=== PATIENT | female | born 2005 | race African-American/Black ===

== ENCOUNTER 2025-02-21 08:19 | Outpatient (AMB) | payer OTHER, SELFPAY ==
--- NOTE | 2025-02-21 08:23 | MHC.OFFVISWM ---
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: Details: Start time: 8.15am, End time: 9.05am ?I spent 45 minutes speaking with the patient on the phone plus an additional 5 minutes reviewing and updating records for a total of 50 minutes HPI Comments Details: 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 Father No problems noted. Social History (Updated 01/10/25 @ 15:53 by Freda Stubbs CMA) Alcohol intake: never Patient Tobacco Use Status: Never used Tobacco Physical Exam Vital Signs: BMI result Body Mass Index 42.1 Telehealth Telehealth Telehealth Platform: Telephone Location of provider rendering services: practice address Location of patient: address on file Patient Identification confirmed using: Name, : Yes Telehealth method: voice only Patient verbally consented to treatment: Yes Patient verbally consented to billing insurance company: Yes Patient informed of any privacy concerns related to visit: Yes Minutes spent on Phone/Video with Pt.: 50 Assessment & Plan Assessment & Plan (1) Morbid obesity: Code(s): E66.01 - Morbid (severe) obesity due to excess calories Category: Medical Plan: 1. As we discussed, based on your present BMI you are approximately 115lbs overweight. In my opinion, for any weight loss strategy to be successful should have a high probability to help you lose at least 100lbs out of 115lbs of the extra weight you carry. We discussed in detail the available therapeutic options: 1) our lifestyle intervention program that has an average weight loss of 10% in 3 months.?Some patients continue it for longer and have lost over 50lbs but this is not common. Our lifestyle program can be provided by me. I will provide you with a link to use the ramesh if you choose to do so. We use protein shakes and protein bars to replace some of the meals of the day and cover your appetite better. We will decide together the exact combination. 2) Weight loss medications: these can be used in conjunction with our lifestyle program or you may choose to use them without following a lifestyle program from my program but your own. As we discussed, your insurance may allow a pill called Phentermine. This can cause dry mouth, difficulty sleeping, heart palpitations and elevated blood pressure, Also you can self pay for the first 3 months and the cost is $249 for the first month and $499 for any other month thereafter. These payments go to the drug company directly and not to us. As we discussed, this is not a fci solution, as most patients put all the weight back once they are off the medication. 3) We also discussed about the lap sleeve gastrectomy. In my opinion this is the best option to solve your problem based on your situation and should be used in conjunction with the two previous options. A good strategy to make this decision to proceed with surgery, as soon as you achieve a specific goal with the lifestyle intervention and medication options: to lose least 10% of your initial weight in 3 months. ?I emphasized the importance of close follow-up, adherence to instructions and good communication. The surgery does not replace the need to change your lifestlyle which is the cause of the obesity problem. The surgery provides the motivation to try again to change your lifestyle, it reduces the appetite and make the transition to a better lifestyle easier and doubles the amount of weight you would lose compared to doing the lifestyle change without the surgery. You will need to be on a liquid diet with protein shakes for 2 weeks before surgery to maximize weight loss and boost your nutritional status to recover better from surgery and also for the first two weeks after surgery to let the stomach heal before we introduce other foods. After the first 2 weeks we will introduce protein bars and soft foods like scrambled eggs, cottage cheese and yogurt and after the 6th week will introduce meat, fish and cooked vegetables in small amounts. Over time you should be able to eat everything in small amounts. Side effects like nausea, vomiting, heartburn or abdominal pain are not common in the practice unless you are not following in the practice. This operation requires lifetime commitment to following in our practice and communication with me. You will much less weight and experience side effects if you don?t communicate or not following in the practice. Complications are rare and in our practice is about 1/10 of the national average.
--- OUTSIDE RECORDS SUMMARY | 2025-02-21 08:27 | XMS_ITS | Clinical Summary ---
Author Organization [facility] [address] [facility] Building Address [address] [place], [place] Phone Care Team Providers Care Mail Deliverer Name Role Phone Mecca Perez DO Primary Care Provider [phone] Allergies No known active allergies Medications No known medications Encounters Date Type Department Care Team Description 01/20/2025 3:15 PM EDT Office Visit [facility] [address] [place], [place] [phone] Natalio Greenberg PA Need for hepatitis B vaccination 12/13/2024 4:15 PM EDT Clinical Support [facility] [address] [facility] [place] [place] [phone] Immunization due (Primary Dx) 12/10/2024 Telephone [facility] [address] [facility] [place] [place] [phone] Mecca Perez DO 12/04/2024 Telephone [facility] [address] [place], [place] [phone] Mecca Perez DO 11/21/2024 Telephone [facility] [address] [facility] [place] [place] [phone] Mecca Perez DO 11/21/2024 Telephone [facility] [address] [facility] [place] [place] [phone] Mecca Perez DO from Last 3 Months Immunizations Immunization Administration Dates Next Due Hepatitis B (Eqyklsi-E-Irdpb , Recombivax HB-Adult) 19yo and older 01/20/2025,12/13/2024 Surgical History Surgery Date Site/Laterality Comments TONSILLECTOMY Medical History Medical History Date Comments No pertinent past medical history Family History Medical History Relation Name Comments Scoliosis Father Diabetes Maternal Grandmother Depression Mother bipolar Relation Name Status Comments Father Alive Maternal Grandmother Alive Mother Social History Tobacco Use Types Packs/Day Years Used Date Smoking Tobacco: Never Smokeless Tobacco: Never Tobacco Cessation:Counseling Given: Not Answered Alcohol Use Standard Drinks/Week Comments Never 0 (1 standard drink = 0.6 oz pur e alcohol) Housing Instability Answer Date Recorde d Are you worried that in the next 2 months you may not have stable housing? No 10/29/2024 Food Access & Nutrition Answer Date Rec orded Do you have access to a vari ety of food including fruits and vegetables? Yes 10/29/2024 Access to Healthcare Answer Date Record ed Within the last 3 months, bi mederos many times did you visit the emergency department for your medical care? 0 10/29/2024 Health Literacy Answer Date Recorded How often do you need to hav e someone help you when you read instructions, pamphlets, or other written material from your doctor or pharmacy? Never 10/29/2024 Caregiver: How often do you need to have someone help you when you read instructions, pamphlets, or other written material from your doctor or pharmacy? Not on file 10/29/2024 Financial Risk Answer Date Recorded How hard is it for you to pa y for the very basics like food, housing, medical care, and air conditioning / heating? Not very hard 10/29/2024 Transportation Answer Date Recorded Has the lack of transportati on kept you from meetings, work, or from getting things needed for daily living? No Has the lack of transportati on kept you from medical appointments or from getting medications? No 10/29/2024 Social Isolation Answer Date Recorded How often do you feel lonely or isolated from th ose around you? Rarely 10/29/2024 Food Risk Answer Date Recorded Within the past 12 months we worried whether our food would run out before we got money to buy more. Never true 10/29/2024 Within the past 12 months th e food we bought just didn't last and we didn't have money to get more. Never true 10/29/2024 Dependent Care Answer Date Recorded Do you need help finding or paying for care for your loved ones. For example, child day care teacher or elderly care for an older adult? No 10/29/2024 Education Answer Date Recorded Do you think completing more education or training, like finishing a GED, going to college, or learning a trade, would be helpful for you? Yes 10/29/2024 Employment and Income Answer Date Recor ded During the last four weeks, have you been actively looking for work? No 10/29/2024 Living Situation Answer Date Recorded What is your living situation? 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 Not on fi le Not on file Obstetrics History Last Filed Vital Signs Vital Sign Reading Time Taken Comments Blood Pressure 104/78 11/05/2024 1:53 PM EDT Pulse 66 11/05/2024 1:53 PM EDT Temperature - - Respiratory Rate - - Oxygen Saturation - - Inhaled Oxygen Concentration - - Weight 130 kg (286 lb 9.6 oz) 11/05/2024 1:53 PM EDT Height 179.1 cm (5' 10.5 ) 11/05/2024 1:53 PM ED T Body Mass Index 40.54 11/05/2024 1:53 PM EDT Plan of Treatment Health Maintenance Due Date Last Done Comments Varicella Vaccines (1 of 2 - 13+ 2-dose series) 2017 HPV Vaccines (1 - 3-dose series) 2019 Meningococcal B Vaccine (1 o f 2 - Standard) 2020 DTaP,Tdap,and Td Vaccines (1 - Tdap) 2023 COVID-19 Vaccine (3 - 2024-2 6 season) 2024 10/31/2020, 10/10/2020 Influenza Vaccine (#1) 2024 3, 02/20/2022 Hepatitis B Vaccines (3 of 3 - 19+ 3-dose series) 06/12/2025 01/20/2025, 12/13/2024 Social Influencers of Health Screening 10/29/2025 10/29/2024 Annual Well Child Visit (3-2 1 years old) 11/05/2025 11/05/2024 Cholesterol Screening (Lipid Panel) 11/07/2029 11/07/2024 RSV Immunization Adult Patients (1 - 1-dose 75+ series) 2079 Depression Screening Completed 10/29/2024 Gonorrhea/Chlamydia Screening Discontinued HIB Vaccines Aged Out No longer eligi ble based on patient's age to complete this topic HIV Screening Discontinued Hepatitis A Vaccines Aged Out No long er eligible based on patient's age to complete this topic Hepatitis C Screening Discontinued IPV Vaccines Aged Out No longer eligi ble based on patient's age to complete this topic MMR Vaccines Aged Out No longer eligi ble based on patient's age to complete this topic Meningococcal ACWY Vaccine Aged Out N o longer eligible based on patient's age to complete this topic Pneumococcal Vaccine: Pediatrics (0 to 5 Years) and At-Risk Patients (6 to 49 Years) Aged Out No longer eligible based on patient's age to complete this topic RSV Immunization Patients Under 20 months Aged Out No longer eligible based on patient's age to complete this topic Procedures Procedure Name Priority Date/Time Associated Diagnosis Comments HEPATITIS B SURFACE ANTIBODY Routine 12/03/2024 3:18 PM EDT Screening for endocrine, nutritional, metabolic and immunity disorder Antibody response examination INTERFERON GAMMA INTERPRETATION Routine 12/03/2024 3:18 PM EDT Adult general medical examination INTERFERON GAMMA ANTIGEN 2 Routine 12/03/2024 3:18 PM EDT Adult general medical examination INTERFERON GAMMA ANTIGEN 1 Routine 12/03/2024 3:18 PM EDT Adult general medical examination INTERFERON GAMMA MITOGEN Routine 12/03/2024 3:18 PM EDT Adult general medical examination INTERFERON GAMMA NIL Routine 12/03/2024 3:18 PM EDT Adult general medical examination INTERFERON GAMMA FOR TB, QUALITATIVE Routine 12/03/2024 3:18 PM EDT Adult general medical examination HEPATITIS B CORE ANTIBODY, TOTAL Routine 12/03/2024 3:18 PM EDT Adult general medical examination LIPID PANEL WITH REFLEX TO DIRECT LDL Routine 11/07/2024 11:01 AM EDT Screening for cardiovascular condition from Last 3 Months or Most Recently Relevant to Health Maintenance Results * Interferon gamma interpretation (12/03/2024 3:18 PM EDT) [facility] Signature Quantiferon Plus Interpretation Negative Negative LAB CHEMISTRY METHOD 12/05/2024 1:49 PM EDT [facility] Blood Venous blood specimen / Unknown Venipuncture / Unknown 12/03/2024 3:18 PM EDT 12/03/2024 3:18 PM EDT April Ravi NP LAB BLOOD ORDERABLES Final Resul t Performing Organization Address [facility]/ZIP Co de Phone Number [facility] [address] [place] [address], * Interferon gamma antigen 2 (12/03/2024 3:18 PM EDT) Blood Venous blood specimen / Unknown Venipuncture / Unknown 12/03/2024 3:18 PM EDT 12/03/2024 3:18 PM EDT April Ravi NP LAB BLOOD ORDERABLES Final Resul t Performing Organization Address City/[facility]/ZIP Co de Phone Number [facility] [address] [place] [address], * Interferon gamma antigen 1 (12/03/2024 3:18 PM EDT) Blood Venous blood specimen / Unknown Venipuncture / Unknown 12/03/2024 3:18 PM EDT 12/03/2024 3:18 PM EDT April Ravi NP LAB BLOOD ORDERABLES Final Resul t Performing Organization Address [facility]/ZIP Co de Phone Number [facility] [address] [place] [address], [place] [phone] * Interferon gamma mitogen (12/03/2024 3:18 PM EDT) Blood Venous blood specimen / Unknown Venipuncture / Unknown 12/03/2024 3:18 PM EDT 12/03/2024 3:18 PM EDT April Ravi NP LAB BLOOD ORDERABLES Final Resul t Performing Organization Address [facility] Co de Phone Number [facility] [address] [place] [address], [place] [phone] * Interferon gamma NIL (12/03/2024 3:18 PM EDT) Blood Venous blood specimen / Unknown Venipuncture / Unknown 12/03/2024 3:18 PM EDT 12/03/2024 3:18 PM EDT April Ravi NP LAB BLOOD ORDERABLES Final Resul t Performing Organization Address [facility] de Phone Number [facility] [address] [place] [address], [place] [phone] * Hepatitis B core antibody, total (12/03/2024 3:18 PM EDT) Hep B Core Total Ab Negative Negative LAB CHEMISTRY METHOD 12/03/2024 7:35 PM EDT [facility] Blood Venous blood specimen / Unknown Venipuncture / Unknown 12/03/2024 3:18 PM EDT 12/03/2024 3:18 PM EDT April Ravi NP LAB BLOOD ORDERABLES Final Resul t Performing Organization Address City/[facility] Co de Phone Number [facility] [address] [place] [address], [place] [phone] * Hepatitis B surface antibody (12/03/2024 3:18 PM EDT) [facility] Hepatitis B Surface Ab Negative Negative LAB CHEMISTRY METHOD 12/06/2024 8:47 AM EDT [facility] Hepatitis B Surface Ab Quantitative <3.1 mIU/mL LAB CHEMISTRY METHOD 12/06/2024 8:47 AM EDT [facility] Blood Venous blood specimen / Unknown Venipuncture / Unknown 12/03/2024 3:18 PM EDT 12/03/2024 3:18 PM EDT Narrative [facility] - 12/06/2024 8:47 AM EDT >=10 mIU/mL is considered to be consistent with immunity. us April Raiv NP LAB BLOOD ORDERABLES Final Resul t [facility] [address] [place] [address], [place] [phone] * Lipid panel with reflex to direct LDL (11/07/2024 11:01 AM EDT) [facility] Cholesterol 154 0 - 200 mg/dL LAB CHEMISTRY METHOD 11/07/2024 2:57 PM EDT [facility] Triglycerides 59 0 - 150 mg/dL LAB CHEMISTRY METHOD 11/07/2024 2:57 PM EDT [facility] HDL 50 >=40 mg/dL LAB CHEMISTRY METHOD 11/07/2024 2:57 PM EDT [facility] LDL Calculated 92 0 - 100 mg/dL LAB CHEMISTRY METHOD 11/07/2024 2:57 PM EDT [facility] VLDL Cholesterol Isaias 11.8 mg/dL LAB CHEMISTRY METHOD 11/07/2024 2:57 PM EDT [facility] Non HDL Chol. (LDL+VLDL) 104 <145 mg/dL LAB CHEMISTRY METHOD 11/07/2024 2:57 PM EDT [facility] Chol/HDL Ratio 3.1 0.0 - 4.4 LAB CHEMISTRY METHOD 11/07/2024 2:57 PM EDT [facility] Blood Venous blood specimen / Unknown Venipuncture / Unknown 11/07/2024 11:01 AM EDT 11/07/2024 11:01 AM EDT us April Ravi [employer] TECHNICIAN LAB BLOOD ORDERABLES Final Resul t [facility] [address] [place] [address], from Last 3 Months or Most Recently Relevant to Health Maintenance Insurance [facility] [employer] Care Teams Mail Deliverer Relationship Specialty Start Date End Date Mecca Perez DO [address] [place] [address] PCP - General Internal Medicine 09/03/24
--- OUTSIDE RECORDS SUMMARY | 2025-02-21 08:27 | XMS_ITS | Clinical Summary ---
Author Organization [facility] Address [address] [place] [address] Care Team Providers Care Sex Worker Or Escort Name Role Phone Christelle Patel Primary Care Provider [phone] Allergies No known active allergies Medications No known medications Active Problems No known active problems Encounters Date Type Department Care Team Description 02/10/2025 1:30 PM EST Follow-Up [facility] Medicine [address] [place] [id number] Keron Shepard MD Concussion without loss of consciousness, subsequent encounter (Primary Dx) 01/16/2025 3:30 PM EDT Follow-Up [address] [id number] Keron Shepard MD Concussion without loss of consciousness, subsequent encounter (Primary Dx) 01/03/2025 3:45 PM EDT Office Visit [facility] [address] [place] [id number] Speeder Operator: Keron Scanlon MD Concussion without loss of consciousness, initial encounter (Primary Dx) from Last 3 Months Social History Tobacco Use Types Packs/Day Years Used Date Smoking Tobacco: Never Smokeless Tobacco: Never Tobacco Cessation:Counseling Given: Not Answered Alcohol Use Standard Drinks/Week Comments Never 0 (1 standard drink = 0.6 oz pur e alcohol) Comments No Sex and Gender Information Value Date Recorded Sex Assigned at Not on file Legal Sex Female 9:29 PM EDT Gender Identity Not on file Sexual Orientation Not on file Last Filed Vital Signs Vital Sign Reading Time Taken Comments Blood Pressure 131/82 07/27/2023 2:25 AM EDT Pulse 76 07/27/2023 2:25 AM EDT Temperature 36.8 C (98.2 F) 07/26/2023 9:41 PM EDT Respiratory Rate 18 07/27/2023 2:25 AM EDT Oxygen Saturation 99% 07/27/2023 2:25 AM EDT Inhaled Oxygen Concentration - - Weight 113.4 kg (250 lb) 07/26/2023 9:41 PM EDT Height 177.8 cm (5' 10 ) 07/26/2023 9:41 PM EDT Body Mass Index 35.87 07/26/2023 9:41 PM EDT Plan of Treatment Health Maintenance Due Date Last Done Comments HIV Screening 2004 Hepatitis C Screening 2004 1 Week [facility] 2004 1 Month [facility] 2004 2 Month [facility] 2004 4 Month [facility] 2004 6 Month [facility] 2004 9 Month [facility] 2004 MMR Vaccines (1 of 1 - Standard series) 2005 12 Month [facility] 04/11/2005 15 Month [facility] 06/28/2005 18 Month [facility] 09/26/2005 24 Month [facility] 03/25/2006 30 Month [facility] 07/29/2006 3 to 21 Year [facility] 2007 Well Child Check 2007 DTaP,Tdap,and Td Vaccines (1 - Tdap) 2011 Varicella Vaccines (1 of 2 - 13+ 2-dose series) 2017 HPV Vaccines (1 - 3-dose series) 2019 Chlamydia Screening 2020 Depression Screening and Follow-Up 2024 Social Drivers of Health Annual Screening 2024 COVID-19 Vaccine (3 - 2024-2 6 season) 2024 10/31/2020, 10/10/2020 Influenza Vaccine (#1) 2024 3, 02/20/2022 Hepatitis B Vaccines (3 of 3 - 19+ 3-dose series) 06/12/2025 01/20/2025, 12/13/2024 Meningococcal Vaccine Aged Out No rosalia edgard eligible based on patient's age to complete this topic Pneumococcal Vaccine: Pediatric (0-5 Years) and At-Risk Patients (6-50 Years) Aged Out No longer eligible based on patient's age to complete this topic Insurance [employer] Care Teams Sex Worker Or Escort Relationship Specialty Start Date End Date Christelle Patel [address] [place] [id number] PCP - General Pediatrics 07/27/23
[2025-02-21 08:30] VITALS: BMI 42.1
== END 2025-02-21 11:26 | disposition home or self-care (01) ==
LOC: HO.HBS 08:19
PROVIDERS: PCP Nurse Practitioner; Visit Provider Surgery
DX: E66.01 Morbid (severe) obesity due to excess calories (principal)
CPT/HCPCS: 99204

== ENCOUNTER → 2025-02-24 12:27 | Outpatient (BNV) | payer OTHER, SELFPAY ==
--- NOTE | 2025-02-24 12:27 | A.OFFWM_ITS ---
Intake Intake Visit Reasons: Amb Documentation Allergies No Known Allergies Allergy (Verified 02/21/25 08:23) [facility] Medical History (Updated 02/21/25 @ 08:25 by Félix Green MD) Morbid obesity Surgical History (Updated 01/10/25 @ 15:52 by Freda Stubbs CMA) No history of previous surgery Family History (Updated 01/10/25 @ 15:53 by Freda Stubbs CMA) Mother No problems noted. Father No problems noted. Social History (Updated 01/10/25 @ 15:53 by Freda Stubbs CMA) Alcohol intake: never Patient Tobacco Use Status: Never used Tobacco Behavioral Health Assessment Weight Management Therapy Therapy Notes Details PT is a 19 years old female, who presents for a visit to complete BH assessment as part of surgical weight loss program. Pt reports she was initially referred by her PCP Presenting Concerns Referral Source WMP-Provider. Reason for referral Completion of behavioral health assessment as part of process for weight-loss surgery. Precipitating Event Obesity. Living Situation Current Living Situation Relative's/Guardian's Rylee (in [place] when school is off.) and Other (College dorm during school year.) At risk of losing current housing? No Satisfied with current living situation? Yes Comments At school she shares a [address] with a common kitchen/bath. At home there is her father. Food/Weight/Diet Expectations of change PT started the program at 285Lbs, and is hoping to get surgery during the upcoming holiday break. She was given a meal plan which consisted a combination of shakes, bars, and 1 meal and so far she is doing great. She wants to be at her healthy weight, improve her life quality. History/Relationship with food PT reports if I'm hungry I eat with my eyes , has been used to feel full every time she east, and at times she eats more than she needs. PT denies any stress/emotional eating. she eats her 3 meals a day, and at times would eat even if not hungry because how busy is her day so was better to eat rather than get hungry later. Example of meals before starting the program: Breakfast: eggs, bagel, sausage. Lunch: salad and meat. Dinner: pasta. Eats at the dining shen. Snacks: 3 at day, such as Doritos, sunflower seeds, ice cream, and cookies. Drinks/Liquids: coffee: none. Soda: none. Juice: none. energy drinks: none. Water: 40oz at day. History/Relationship with weight PT reports she has always been overweight. In HS she was around 290Lbs. In the last 5 years, the patient's Lowest weight was 245Lbs and highest 285Lbs. 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 Binge Eating Do you frequently eat large amounts of food in short periods of time, not feeling physically hungry? No Do you feel out of control when you eat a large amount of food in a short period of time? No Do you eat large amounts of food rapidly and typically alone? No Night Eating Do you wake up at least once during the night to eat? Yes If you wake up in the night, do you find that it is necessary to eat something in order to fall back asleep? No Do you have little or no appetite in the morning and feel very hungry in the evening, often overeating between dinner and when you go to bed? No Social History Family history and relationship Never , no children, single. She has an older sister who is 23 years old. Her mother 2 years ago. She lives with her father. Her parents were for 27 years. Parental/Familial erector operator obligations None. Developmental history and status None, currently WNL. Social support Family, come friends. Community support Therapist. Mandaeism/Spirituality None Cultural/Ethnic information -Vincentian. Born and raised in [place]. Has family here and down there. Legal Involvement and History Current or historical involvement with the legal system? None reported. Education Highest grade completed 3 - year College Preferred learning style Written and Learn by doing Currently enrolled in educational program? Yes Interested in further educational program? 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 No Meaningful activities Track team, participates in some clubs in college, volleyball. Financial Situation Describe current financial situation Comfortable Financial assistance? Contributions from your family/friends (father.) and Other (College scholarships.) Service Service? No Mental Health and Addiction Treatment Current/Past substance abuse? No Comments Alcohol: None Cigarettes/Tobacco: None reported. Cannabis/Edibles: None. Current/Past addictive behavior concerns? No Psychiatric history PT reports she has been in therapy for about 2 months, Been doing telehealth at [facility]. she started counseling to get support with emotions and process the loss her mother. Currently meeting 1x week. PT not aware of any particular dx given. PT denies ever being in crisis or inpatient for mental health. There is no history and/or current concern about SI/Sa and self-harm or other harm. Medical and Physical Health Summary Additional Medical History not covered in history None Sexual History concerns None reported. Physical exam in the last year? Yes Pain Screening Current pain? No Pain in the last few months? Yes Comments Lower back pain. Medications Is the patient compliant with medications? Not applicable Does the patient have Lara Guardian in place? Not applicable Does the patient use complimentary health approaches? No Trauma/Abuse History History of trauma? No Questionnaires PHQ-9 Over the last 2 weeks, how often have you been bothered by any of the following problems? 1. Little interest or pleasure in doing things: not at all 2. Feeling down, depressed, or hopeless: several days 3. Trouble falling or staying asleep, or sleeping too much: not at all 4. Feeling tired or having little energy: not at all 5. Poor appetite or overeating: several days 6. Feeling bad about yourself - or that you are a failure or have let yourself or your family down: not at all 7. Trouble concentrating on things, such as reading the newspaper or watching television: not at all 8. Moving or speaking so slowly that other people could have noticed. Or the opposite - being so fidgety or restless that you have been moving around a lot more than usual: not at all 9. Thoughts that you would be better off or of hurting yourself in some way: not at all Total score: 2 Depression Screening Interpretation: Negative Depression Screening Done: Yes 52350 - PHQ-9 Billing: Yes Source: Developed by Drs. Jackson Lord, Caitie Sadler, Jaron Basurto and colleagues, with an educational kris from [employer]. Assessment & Plan Assessment & Plan (1) Adjustment disorder: Code(s): F43.20 - Adjustment disorder, unspecified (2) Pre-bariatric surgery psychological evaluation: Code(s): Z71.89 - Other specified counseling Plan Following a comprehensive behavioral health assessment?including review of the Binge Eating Scale, PHQ-9, mental status evaluation, and patient self- report?there are currently no behavioral health contraindications to proceeding with bariatric surgery. The patient demonstrates appropriate insight, motivation, and psychological readiness for the procedure. No active psychiatric symptoms or maladaptive eating behaviors were identified that would impede surgical outcomes at this time. The patient is cleared from a behavioral health perspective to proceed with bariatric surgery and documentation can be submitted for insurance approval as indicated. PT will return for a follow-up behavioral health visit 1?4 weeks postoperatively to monitor psychological adjustment, reinforce coping strategies, and screen for any emerging concerns such as mood changes, adjustment difficulties, or disordered eating patterns. Additional behavioral health support will be provided as needed based on postoperative assessment. Next ramesh: 1-4 weeks PO. Telehealth Telehealth Telehealth Platform: [employer] Location of provider rendering services: other (Home office. [place], [place]) Location of patient: [place] ([facility] Patient Identification confirmed using: Name, : Yes Telehealth method: video Patient verbally consented to treatment: Yes Patient verbally consented to billing insurance company: Yes Patient informed of any privacy concerns related to visit: Yes Minutes spent on Phone/Video with Pt.: 50 [place] [address] Tele Psy Diag Eval Patient Type New Diagnoses Adjustment disorder F43.20 Pre-bariatric surgery psychological evaluation Z71.89 Additional Codes PHQ-9 - 08106 - PHQ-9 Billing: Yes ([id number]) Time Spent (min) 50 Comment Start: 12:15pm - End time: 1:05pm
== END ==
PROVIDERS: PCP Nurse Practitioner; Visit Provider Counselor Mental Health
DX: F43.20 Adjustment disorder, unspecified (principal); Z71.89 Other specified counseling
CPT/HCPCS: 90791

== ENCOUNTER 2025-02-25 07:47 | Outpatient (REF) | payer OTHER, SELFPAY ==
[2025-02-25 08:03] LABS: MANUAL DIFF FLAG NO
[2025-02-25 08:19] LABS: Hematocrit 28.9 % (37.0-47.0); Hemoglobin 9.1 g/dl (12.0-16.0); Imm Gran Abs Auto 0.01 X10*3/uL (0.00-0.03); Imm Gran Pct Auto 0.2 % (0.0-0.4); Lymphocytes Absolute Auto 2.0 X10*3/uL (1.2-4.9); Mean Corpuscular HGB Conc 31.5 g/dl (31.0-35.0); Mean Corpuscular Hemoglobin 22.6 pg (27.0-33.0); Mean Corpuscular Volume 71.7 fL (80.0-98.0); NRBC Abs Auto 0.000 X10*3/uL (0.0-0.012); NRBC Pct Auto 0.0 /100WBC (0.0-0.2); Platelet Count 447 X10*3/uL (160-400); Red Blood Count 4.03 X10*6/uL (4.20-5.50); White Blood Count 5.1 X10*3/uL (4.8-10.8)
[2025-02-25 08:57] LABS: Cholesterol 153 mg/dL (<200); HDL Cholesterol 42 mg/dL (>40); Iron 17 mcg/dL (30-160); Percent Iron Saturation 4 % (15-50); Total Iron Binding Capacity 378 mcg/dL (228-428); Triglycerides 55 mg/dL (<150); Unsaturated Iron Binding 361 ug/dL
[2025-02-25 09:22] LABS: Folate 7.3 ng/mL (> or = 4.0); Vitamin B12 481 pg/mL (200-900)
== END 2025-02-25 07:48 | disposition home or self-care (01) ==
LOC: HO.LAB 07:47
PROVIDERS: Visit Provider Surgery
DX: E66.01 Morbid (severe) obesity due to excess calories (principal)
CPT/HCPCS: 36415; 80061; 82306; 82607; 82746; 83036; 83525; 83540; 84425; 84590; 84630; 85025

== ENCOUNTER 2025-03-10 06:41 | Outpatient (REF) | payer OTHER, SELFPAY ==
--- NOTE | ~2025-03-10 | XR_ITS ---
EXAMINATION: XR CHEST CLINICAL INFORMATION: E66.01 - Morbid (severe) obesity due to excess calories COMPARISON: None available. TECHNIQUE: 3 views FINDINGS: The cardiomediastinal silhouette is within normal limits. The lungs are well expanded. There is no focal consolidation, edema, or effusion. No pneumothorax. No acute osseous abnormality. XR/XR chest 2V IMPRESSION: No acute cardiopulmonary process Electronically signed by: Ronald Ngo MD 03/10/2025 07:34 AM [facility]
--- OUTSIDE RECORDS SUMMARY | 2025-03-10 06:43 | XMS_ITS | Clinical Summary ---
Author Organization [address] [facility] Building Address [address] [place] [address] Phone Care Team Providers Care Crew Clerk Name Role Phone Mecca Perez DO Primary Care Provider [phone] Allergies No known active allergies Medications No known medications Encounters Date Type Department Care Team Description 01/20/2025 3:15 PM EDT [facility] [address] [place] [address] Natalio Greenberg PA Need for hepatitis B vaccination 12/13/2024 4:15 PM EDT Clinical Support Internal Medicine - [address] [phone] Immunization due (Primary Dx) 12/10/2024 Telephone Internal Medicine - [address] [phone] Mecca Perez DO from Last 3 Months Immunizations Immunization Administration Dates Next Due Hepatitis B (Oprzxnl-I-Kxbyq , Recombivax HB-Adult) 19yo and older 01/20/2025,12/13/2024 [...] Record ed Within the last 3 months, ho w many times did you visit the emergency [...] for your loved ones. For example, child welfare social worker or elderly care for an older adult? 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 [...] 2024 10/31/2020, 10/10/2020 Influenza Vaccine (#1) 2024 , 02/20/2022 Hepatitis B Vaccines (3 of 3 [...] Procedure Name Priority Date/Time Associated Diagnosis Comments LIPID PANEL WITH REFLEX TO DIRECT LDL Routine 11/07/2024 11:01 AM EDT Screening for cardiovascular condition from Last 3 Months or Most Recently Relevant to Health Maintenance Results * Lipid panel with reflex to direct LDL (11/07/2024 11:01 AM EDT) Cholesterol 154 0 - 200 mg/dL LAB CHEMISTRY METHOD 11/07/2024 2:57 PM [facility] Triglycerides 59 0 - 150 mg/dL LAB CHEMISTRY METHOD 11/07/2024 2:57 PM [facility] HDL 50 >=40 mg/dL LAB CHEMISTRY METHOD 11/07/2024 2:57 PM [facility] LDL Calculated 92 0 - 100 mg/dL LAB CHEMISTRY METHOD 11/07/2024 2:57 PM [facility] VLDL Cholesterol Isaias 11.8 mg/dL LAB CHEMISTRY METHOD 11/07/2024 2:57 PM [facility] Non HDL Chol. (LDL+VLDL) 104 <145 mg/dL LAB CHEMISTRY METHOD 11/07/2024 2:57 PM [facility] Chol/HDL Ratio 3.1 0.0 - 4.4 LAB CHEMISTRY METHOD 11/07/2024 2:57 PM [facility] Blood Venous blood specimen / Unknown Venipuncture / Unknown 11/07/2024 11:01 AM EDT 11/07/2024 11:01 AM EDT us April Ravi MATE CHIEF LAB BLOOD ORDERABLES Final [facility]ul t [facility] [address] [place] [address], from Last 3 Months or Most Recently Relevant to Health Maintenance Insurance [facility] Care Teams Crew Clerk Relationship Specialty Start Date End Date Mecca Perez DO [address] [facility] [place] [address] PCP - General Internal Medicine 09/03/24
--- OUTSIDE RECORDS SUMMARY | 2025-03-10 06:43 | XMS_ITS | Clinical Summary ---
Author Organization [facility] Address [address] [place] [address] Care Team Providers Care Supervisor Acoustical Tile Carpenters Name Role Phone Christelle Patel Primary Care Provider [phone] Allergies No known active allergies Medications No known medications Active Problems No known active problems Encounters Date Type Department Care Team Description 02/10/2025 1:30 PM EST Follow-Up [facility] Sports Medicine [address] [place] [id number] Keron Shepard MD Concussion without loss of consciousness, subsequent encounter (Primary Dx) 01/16/2025 3:30 PM EDT Follow-Up [address] [address] Keron Shepard MD Concussion without loss of consciousness, subsequent encounter (Primary Dx) 01/03/2025 3:45 PM EDT Office Visit [facility] Sports Medicine [address] [place] [address] Compliance Quality Performance Analyst: Keron Scanlon MD Concussion without loss of [...] 2004 Hepatitis C Screening 2004 1 Week [facility] 2004 1 Month [facility] 2004 2 Month [facility] 2004 4 Month [facility] 2004 6 Month [facility] 2004 9 Month [facility] 2004 MMR Vaccines (1 of 1 - Standard series) 2005 12 Month [facility] 04/11/2005 15 Month [facility] 06/28/2005 18 Month [facility] 09/26/2005 24 Month [facility] 03/25/2006 30 Month [facility] 07/29/2006 3 to 21 Year [facility] 2007 Well Child Check 2007 DTaP,Tdap,and Td Vaccines (1 - Tdap) 2011 Varicella Vaccines (1 of 2 - 13+ 2-dose series) 2017 HPV Vaccines (1 - 3-dose series) 2019 Chlamydia Screening 2020 Meningococcal Vaccine (1 - 2-dose series) 2020 Depression Screening and Follow-Up 2024 Social Drivers of Health Annual Screening 2024 Influenza Vaccine (#1) 2024 , 02/20/2022 COVID-19 Vaccine (3 - 2024-2 6 season) 2024 10/31/2020, 10/10/2020 Hepatitis B Vaccines (3 of 3 - 19+ 3-dose series) 06/12/2025 01/20/2025, 12/13/2024 Pneumococcal Vaccine: Pediatric (0-5 Years) and At-Risk Patients (6-50 Years) Aged Out No longer eligible based on patient's age to complete this topic Insurance [employer] Care Teams Supervisor Acoustical Tile Carpenters Relationship Specialty Start Date End Date Christelle Patel [address] [place] [id number] PCP - General Pediatrics 07/27/23
--- NOTE | 2025-03-10 07:38 | ECG_ITS ---
Test Reason : e66.01 Blood Pressure : */* mmHG Vent. Rate : 59 BPM Atrial Rate : 59 BPM P-R Int : 162 ms QRS Dur : 98 ms QT Int : 412 ms P-R-T Axes : 53 40 19 degrees QTcB Int : 407 ms Sinus bradycardia with sinus arrhythmia Incomplete right bundle branch block Borderline ECG No previous ECGs available Referred By: Félix Green Electronically Signed By: SKIP ORTIZ
[2025-03-10 07:53] LABS: Alanine Aminotransferase 23 U/L (0-31); Albumin Level 4.2 g/dL (3.5-5.0); Alkaline Phosphatase 97 U/L (39-117); Anion Gap 12 (12-20); Aspartate Amino Transferase 31 U/L (5-31); Blood Urea Nitrogen 17 mg/dL (9-16); Calcium 8.9 mg/dL (8.4-10.2); Carbon Dioxide 24 mmol/L (22-29); Chloride 110 mmol/L (96-108); Estimated Glomerular Filt Rate > 60; Potassium 3.6 mmol/L (3.3-5.1); Sodium 142 mmol/L (135-145); Total Protein 7.1 g/dL (6.5-8.0)
[2025-03-10 08:18] LABS: Ferritin 7 ng/mL (10-122)
[2025-03-10 10:19] LABS: Free T4 (Free Thyroxine) 0.90 ng/dL (0.71-1.85)
== END 2025-03-10 06:42 | disposition home or self-care (01) ==
LOC: HO.XRAY 06:41
PROVIDERS: PCP Nurse Practitioner; Visit Provider Surgery
DX: E66.01 Morbid (severe) obesity due to excess calories (principal)
CPT/HCPCS: 36415; 71046; 80053; 82728; 84439; 84443; 86140; 93005

== ENCOUNTER → 2025-03-10 07:38 | Outpatient (BNV) | payer OTHER, SELFPAY | PROVIDERS: PCP Nurse Practitioner; Visit Provider Internal Medicine | DX: R00.1 Bradycardia, unspecified (principal); I45.10 Unspecified right bundle-branch block | CPT/HCPCS: 93010 ==

== ENCOUNTER 2025-03-25 07:23 | Day surgery (SDC) | payer OTHER, SELFPAY ==
--- OUTSIDE RECORDS SUMMARY | 2025-03-12 12:19 | XMS_ITS | Clinical Summary ---
Author Organization [facility] Address [address] [place] [phone] Phone Care Team Providers Care Heel Stainer Name Role Phone Mecca Perez DO Primary Care Provider [phone] Allergies No known active allergies Medications No known medications Encounters Date Type Department Care Team Description 01/20/2025 3:15 PM EDT Office Visit Internal Medicine - [address] [phone] Natalio Greenberg PA Need for hepatitis B vaccination 12/13/2024 4:15 PM EDT Clinical Support Internal Medicine - [address] [phone] Immunization due (Primary Dx) from Last 3 Months Immunizations Immunization Administration Dates Next Due Hepatitis B (Aaeermp-V-Gwjhb , Recombivax HB-Adult) 19yo and older 01/20/2025,12/13/2024 [...] care for your loved ones. For example, early childhood education specialist or elderly care for an older adult? 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 HDL 50 >=40 mg/dL LAB CHEMISTRY METHOD 11/07/2024 2:[address] [facility] LDL Calculated 92 0 - 100 mg/dL LAB CHEMISTRY METHOD 11/07/2024 2:[address] [facility] VLDL Cholesterol Isaias 11.8 mg/dL LAB CHEMISTRY METHOD 11/07/2024 2:[address] [facility] Non HDL Chol. (LDL+VLDL) 104 <145 mg/dL LAB CHEMISTRY METHOD 11/07/2024 2:[address] [facility] Chol/HDL Ratio 3.1 0.0 - 4.4 LAB CHEMISTRY METHOD 11/07/2024 2:[address] [facility] Blood Venous blood specimen / Unknown Venipuncture / Unknown 11/07/2024 11:01 AM EDT 11/07/2024 11:01 AM EDT us April Ravi PRODUCTION ASSISTANT LAB BLOOD ORDERABLES Final Resul t [facility] [address] [place] [address], from Last 3 Months or Most Recently Relevant to Health Maintenance Insurance [place] [address] Care Teams Heel Stainer Relationship Specialty Start Date End Date Mecca Perez DO [address] [place] [address] PCP - General Internal Medicine 09/03/24
--- OUTSIDE RECORDS SUMMARY | 2025-03-12 12:19 | XMS_ITS | Clinical Summary ---
Author Organization [facility] Address [address] [place] [address] Care Team Providers Care Rigger Third Name Role Phone Christelle Patel Primary Care Provider [phone] Allergies No known active allergies Medications No known medications Active Problems No known active problems Encounters Date Type Department Care Team Description 02/10/2025 1:30 PM EST Follow-Up [facility] Sports Medicine [address] [place] [id number] Keron Shepard MD Concussion without loss of consciousness, subsequent encounter (Primary Dx) 01/16/2025 3:30 PM EDT Follow-Up [address] [address] Keron Shepard MD Concussion without loss of consciousness, subsequent encounter (Primary Dx) 01/03/2025 3:45 PM EDT Office Visit [facility] Sports Medicine [address] [place] [phone] Access Assoc: Keron Scanlon MD Concussion without loss of [...] 2004 Hepatitis C Screening 2004 1 Week [facility] 2004 1 Month [facility] 2004 2 Month [facility] 2004 4 Month [facility] 2004 6 Month [facility] 2004 9 Month [facility] 2004 MMR Vaccines (1 of 1 - Standard series) 2005 12 Month [facility] 04/11/2005 15 Month [facility] 06/28/2005 18 Month [facility] 09/26/2005 24 Month [facility] 03/25/2006 30 Month [facility] 07/29/2006 3 to 20 Year [facility] 2007 Well Child Check 2007 DTaP,Tdap,and [...] this topic Insurance [employer] Care Teams Rigger Third Relationship Specialty Start Date End Date Christelle Patel [address] [place] [id number] PCP - General Pediatrics 07/27/23
[2025-03-21 09:18] VITALS: BMI 42.1
[2025-03-25 07:33] VITALS: BMI 41.7
[2025-03-25] MEDS: Lactated Ringers 1,000 ML 80 ML IVCONT (07:42)
[2025-03-25 07:43] VITALS: BP 133/84; PULSE 80; RESP 16; TEMP 36.2; O2SAT 98
[2025-03-25 07:43] LABS: UPreg QC Valid YES
--- NOTE | 2025-03-25 07:47 | P.CONAN_ITS ---
Documented by User: Maria Alejandra Manjarrez NP 03/20/25 14:36 HPI - Anesthesia Eval Consult details Narrative: 19yo F for Upper Endoscopy [facility] Active Problems Active Problems: All Active Problems Hypothyroidism (Acute) Vitamin B12 deficiency (Acute) Vitamin A deficiency (Acute) Vitamin D deficiency (Acute) Iron (Fe) deficiency anemia (Acute) Morbid obesity (Acute) Past Medical History Medical History (Updated 03/10/25 @ 21:18 by Félix Green MD) Hypothyroidism Vitamin B12 deficiency Vitamin A deficiency Vitamin D deficiency Iron (Fe) deficiency anemia Morbid obesity Family History Family History (Updated 01/10/25 @ 15:53 by Freda Stubbs CMA) Mother No problems noted. Father No problems noted. Surgical History Surgical History (Updated 01/10/25 @ 15:52 by Freda Stubbs CMA) No history of previous surgery Social History Social History (Updated 01/10/25 @ 15:53 by Freda Stubbs CMA) Alcohol intake: never Patient Tobacco Use Status: Never used Tobacco Use of substances other than those prescribed or required for medical reasons: No Advance Directives: No Advance Directives Information Provided: Yes Meds Allergies Allergy/AdvReac Type Severity Reaction Status Date / Time No Known Allergies Allergy Verified 02/21/25 08:23 Assessment and Plan Assessment Anesthesia Assessment: Chart Reviewed Documented by User: Louann Burrell DO 03/25/25 07:49 [facility] Past Medical History Medical History (Updated 03/10/25 @ 21:18 by Félix Green MD) Hypothyroidism Vitamin B12 deficiency Vitamin A deficiency Vitamin D deficiency Iron (Fe) deficiency anemia Morbid obesity Family History Family History (Updated 01/10/25 @ 15:53 by Freda Stubbs CMA) Mother No problems noted. Father No problems noted. Family history of problems with anesthesia: No Surgical History Surgical History (Updated 01/10/25 @ 15:52 by Freda Stubbs CMA) No history of previous surgery History of Problems with Anesthesia: No (never had anesthesia) Social History Social History (Updated 01/10/25 @ 15:53 by Freda Stubbs CMA) Alcohol intake: never Patient Tobacco Use Status: Never used Tobacco Use of substances other than those prescribed or required for medical reasons: No Advance Directives: No Advance Directives Information Provided: Yes Meds Allergies Allergy/AdvReac Type Severity Reaction Status Date / Time No Known Allergies Allergy Verified 02/21/25 08:23 Exam Exam Date and Time: 03/25/25 0748 Height,Weight and Vital Signs: Height 5 ft 9 in Weight 128.2 kg Vital Signs Temperature 97.1 F 03/25/25 07:43 Pulse Rate 80 03/25/25 07:43 Respiratory Rate 16 03/25/25 07:43 Blood Pressure 133/84 03/25/25 07:43 Pulse Oximetry 98 03/25/25 07:43 Oxygen Delivery Method Room Air 03/25/25 07:43 Temperature 97.1 F 03/25/25 07:43 Pulse Rate 80 03/25/25 07:43 Respiratory Rate 16 03/25/25 07:43 Blood Pressure 133/84 03/25/25 07:43 Pulse Oximetry 98 03/25/25 07:43 Oxygen Delivery Method Room Air 03/25/25 07:43 Airway Mallampati Class: I TM Dist: >3cm Neck ROM: Full Loose/Missing/Broken Teeth: No (braces) Heart: S1S2 Lungs: CTAB Assessment and Plan Assessment Anesthesia Assessment: Anesthesia Plan Discussed and Chart Reviewed Final Anesthetic Review Family History of Problems with Anesthesia: No History of Problems with Anesthesia: No (never had anesthesia) NPO: Yes ASA Class: II Final Preanesthetic Review: No Changes in Pt Med Stat, Meds/Allgs Chart Reviewed, Consent Obtained/Reviewed and Anes Risks/Benef Reviewed Patient Risk: Low Procedure Risk: Low Anesthetic Plan Anesthetic Plan: MAC: and Agree w/ Assess. and Plan Disposition: Standard PACU
--- NOTE | 2025-03-25 08:08 | MHC.SHP ---
Pre-Procedural Eval Section A - 24 Hr Update-Section A only Date of Service: 03/25/25 The patient is an INPATIENT: No The patient has been examined within 24 hours of the surgical procedure. The History & Physical has been completed within 30 days and I have reviewed it.: Yes Section B - Complete if H&P > 30 days Chief Complaint: Obesity, unspecified Relevant Family History (Specify if Yes): No Relevant Social History: None Present Medications: None Medical History: No relevant PMH History of Previous Operations: No relevant previous surgery Allergies: Allergies Allergy/AdvReac Type Severity Reaction Status Date / Time No Known Allergies Allergy Verified 02/21/25 08:23 Review of Systems Sugical H&P ROS: Negative: Constitution, Cardiovascular, Respiratory, Neurological, Psychiatric, Hem-Onc, Allergic/Immunologic, Gastrointestinal, Genitourinary, Musculoskeletal, Integumentary, Endocrine and Eyes/Ears/Nose/Throat Exam Surgical H&P Exam: Normal: HEENT, Normal: Heart, Normal: Lungs, Normal: Extremities, Normal: Abdomen, Normal: Skin and Normal: Neurological Plan Diagnosis/Plan: Unchanged (EGD to assess the stomach's anatomy. Risks of bleeding and perforation were discussed with the patient and she is in agreement with the plan.) I have reviewed the history and physical and performed a pertinent physical examination on my patient. No changes have occurred unless specified. Time Spent With Patient Time: Total time managing care of this patient today ____ minutes.
--- NOTE | 2025-03-25 08:13 | P.BOP_ITS ---
Brief Operative Note Date of Service: 03/25/25 Pre-op diagnosis: Morbid obesity Post-op diagnosis: same (Gastritis) Procedure: PROCEDURE DATE: 03/25/2025 PREOPERATIVE DIAGNOSIS: GERD POSTOPERATIVE DIAGNOSIS: ?Same as above. Gastritis PROCEDURE: Xtqypzgl-zkzgrx-hrqyhcrxqaqn with biopsies Surgeon: ?Zion Green M.D.. Ph.D. Audio Recording Engineer: None ? Anesthesia: IV sedation Estimated blood loss: ?Minimal FINDINGS AND PROCEDURE: ? OPERATIVE INDICATIONS: ?The patient is a 19 year old female known to me who is interested in bariatric surgery. Based on this information I recommended an upper endoscopy to evaluate the patient's symptoms. Risks and complications of the surgery were discussed with the patient in advance particularly the possibility of perforation or bleeding that may require surgical intervention. The patient understood the risks and was in agreement with the plan. ? PROCEDURE: After informed consent was obtained by the patient, the patient was ?transferred to the Operating Room and was placed in the supine position.? After successful induction of IV sedation, a mouth block was inserted and the patient was placed in the left lateral decubitus position. An upper endoscopy was performed next, the oropharynx and esophagus appeared within the normal limits. There was no hiatal hernia. The z-line was smooth. Two biopsies were obtained from the distal esophagus 2-3 cm proximal to the GE junction and two additional biopsies from the GE junction. The stomach was entered and it appeared to be of normal size. There was gastritis present at the gastric body and antrum and that area was biopsied. There was no stricture or ulcer. A biopsy was obtained from the gastric fundus and the antrum. No significant bleeding was noted from any of the biopsy sites. Retroflexion of the scope confirmed the presence of a normal GE junction. The scope was then advanced into the duodenum to the 3rd portion, which appeared to be normal as well. At that point the duodenum ?and the stomach were decompressed and the scope was withdrawn from the patient's mouth. The patient extubated and was transferred in stable condition to the Recovery Room for further care. I was present and performed all steps of the procedure. There were no residents to assist with this case. Zion Green M.D., Ph.D. Surgeon: Félix Green MD Anesthesia: MAC Was an Audio Recording Engineer used for this Procedure?: No Estimated blood loss (mL): 0 IV fluids (mL): 400 Urine output (mL): 0 (No Moore to record output) Pathology: other (1) antrum x1, 2) fundus x1, 3) GE junction x2, 4) distal esophagus x2) Condition: stable Disposition: PACU
[2025-03-25 08:33] VITALS: BP 116/87; PULSE 79; RESP 16; TEMP 36.3; O2SAT 98
[2025-03-25 08:47] VITALS: BP 123/78; PULSE 90; RESP 18; TEMP 36.2; O2SAT 99
== END 2025-03-25 09:38 | disposition home or self-care (01) ==
PROVIDERS: Nurse Practitioner; PCP Nurse Practitioner; Visit Provider Surgery
PROC: 0DJ08ZZ Inspection of Upper Intestinal Tract, Via Natural or Artificial Opening Endoscopic (ICD-10-PCS; CPT 43235; principal; 2025-03-25 08:00)
DX: K21.9 Gastro-esophageal reflux disease without esophagitis (principal); K29.50 Unspecified chronic gastritis without bleeding; E66.01 Morbid (severe) obesity due to excess calories; Z68.41 Body mass index [BMI] 40.0-44.9, adult; D50.9 Iron deficiency anemia, unspecified; E03.9 Hypothyroidism, unspecified; E50.9 Vitamin A deficiency, unspecified; E53.8 Deficiency of other specified B group vitamins; E55.9 Vitamin D deficiency, unspecified
CPT/HCPCS: 43239; 81025; 88305; 88313; 88342; J2704

== ENCOUNTER → 2025-03-25 07:23 | Outpatient (BNV) | payer OTHER, SELFPAY | PROVIDERS: PCP Nurse Practitioner; Visit Provider Surgery | DX: E66.01 Morbid (severe) obesity due to excess calories (principal); Z68.41 Body mass index [BMI] 40.0-44.9, adult; K21.9 Gastro-esophageal reflux disease without esophagitis; K29.70 Gastritis, unspecified, without bleeding | CPT/HCPCS: 43239 ==

== ENCOUNTER 2025-04-04 08:30 | Outpatient (REF) | payer OTHER, SELFPAY ==
--- NOTE | ~2025-04-04 | US_ITS ---
EXAMINATION: US ABDOMEN COMPLETE WITH LIVER ELASTOGRAPHY HISTORY: E66.01 - Morbid (severe) obesity due to excess calories TECHNIQUE: Real-time grayscale ultrasound imaging of the abdomen was performed and images were reviewed. COMPARISON: There are no prior studies available for comparison. FINDINGS: Liver: The right lobe of the liver measures 14.3 cm in size. The left lobe of the liver measures 11.0 cm in size. The liver demonstrates mildly increased echotexture, consistent with steatosis. No focal mass or intrahepatic biliary ductal dilatation is identified. There is normal hepatopedal flow in the portal vein. Ultrasound elastography of the liver was performed with 10 separate measurements of the liver parenchyma with the patient in the supine position. Measurements were obtained approximately 2 cm below Freddie's capsule and perpendicular to the capsule. The median shear wave velocity is 1.27 m/s. The interquartile range/median (IQR/median) is 0.06. Gallbladder and biliary tree: The gallbladder is unremarkable, without evidence of calculi, wall thickening, or pericholecystic fluid. There is no sonographic Vernon sign. The common bile duct is normal in caliber measuring 4 mm in diameter. Kidneys: The right kidney measures 11.9 cm in length. The left kidney measures 11.1 cm in length. The kidneys are unremarkable, without evidence of masses, hydronephrosis, or calculi. Pancreas: The pancreatic head, neck, and body are unremarkable. The pancreatic tail is obscured by bowel gas. Spleen: The spleen is normal in size and contour, measuring 10.6 cm in length. Abdominal aorta and inferior vena cava: The visualized portions of the abdominal aorta and inferior vena cava are normal in caliber. There is no free fluid in the abdomen. US/US abdomen comp w elastography IMPRESSION: Mild hepatic steatosis. The median shear wave velocity in the liver is 1.27 m/s, corresponding to a median liver stiffness of 4.88 kPa. The IQR/median value is 0.06. This is indicative of a quality data set. Findings are indicative of a normal elastography value with a low likelihood of severe fibrosis or cirrhosis. REFERENCE: Society of Radiologists in Ultrasound Liver Stiffness Thresholds (2020): LIVER STIFFNESS THRESHOLDS: *Shear wave velocity less than 1.3 m/s (Liver Stiffness equal or less than 5 kPa): High probability of being normal. *Shear wave velocity less than 1.7 m/s (Liver Stiffness less than 9 kPa): In the absence of other known clinical signs, rules out compensated advanced chronic liver disease. *Shear wave velocity between 1.7-2.1 m/s (Liver Stiffness 9-13 kPa): Suggestive of compensated advanced chronic liver disease but need further test for confirmation. *Shear wave velocity between 2.1-2.4 m/s (Liver Stiffness 13-17 kPa): Rules in compensated advanced chronic liver disease. *Shear wave velocity greater than 2.4 m/s (Liver Stiffness over 17 kPa): Suggestive of clinically significant portal hypertension. QUALITY OF DATA SET: *IQR/Median value equal or less than 0.15 implies a quality data set. *IQR/Median value over 0.15 implies a poor quality data set. SIGNIFICANT CHANGE FROM PRIOR EXAM: Significant change if liver stiffness measurement is 10% or greater from prior exam. OTHER CONSIDERATIONS: The stage of liver fibrosis may be overestimated in the setting of acute hepatitis, liver inflammation, elevated liver function tests, hepatic vascular congestion, obstructive cholestasis, non-fasting state, and infiltrative diseases such as amyloidosis and lymphoma. In some patients with NAFLD, the liver stiffness thresholds for compensated advanced chronic liver disease may be lower. In causes other than viral hepatitis and NAFLD, liver stiffness thresholds are not well established. Electronically signed by: Jackson Drake MD 04/04/2025 09:21 AM [facility]
--- OUTSIDE RECORDS SUMMARY | 2025-04-04 08:34 | XMS_ITS | Clinical Summary ---
Author Organization [facility] Address [address] [place] [address] Care Team Providers Care Public Health Professor Name Role Phone Christelle Patel Primary Care Provider [phone] Allergies No known active allergies Medications No known medications Active Problems No known active problems Encounters Date Type Department Care Team Description 02/10/2025 1:30 PM EST Follow-Up [facility] Sports Medicine [address] [place] [id number] Keron Shepard MD Concussion without loss of consciousness, subsequent encounter (Primary Dx) 01/16/2025 3:30 PM EDT Follow-Up [address] [address] Keron Shepard MD Concussion without loss of consciousness, subsequent encounter (Primary Dx) 01/03/2025 3:45 PM EDT Office Visit [facility] Sports Medicine [address] [place] [address] Sewing Supervisor: Keron Scanlon MD Concussion without loss of [...] 2004 Hepatitis C Screening 2004 1 Week [facility] 2004 1 Month [facility] 2004 2 Month [facility] 2004 4 Month [facility] 2004 6 Month [facility] 2004 9 Month [facility] 2004 MMR Vaccines (1 of 1 - Standard series) 2005 12 Month [facility] 04/11/2005 15 Month [facility] 06/28/2005 18 Month [facility] 09/26/2005 24 Month [facility] 03/25/2006 30 Month [facility] 07/29/2006 3 to 21 Year [facility] 2007 Well Child Check 2007 DTaP,Tdap,and Td [...] this topic Insurance [employer] Care Teams Public Health Professor Relationship Specialty Start Date End Date Christelle Patel [address] [place] [id number] PCP - General Pediatrics 07/27/23
--- OUTSIDE RECORDS SUMMARY | 2025-04-04 08:34 | XMS_ITS | Clinical Summary ---
Author Organization [address] [facility] Address [address] [place] [address] Phone Care Team Providers Care Bump Grader Operator Name Role Phone Mecca Perez DO Primary Care Provider [phone] Allergies No known active allergies Medications No known medications Encounters Date Type Department Care Team Description 01/20/2025 3:15 PM EDT Office Visit Internal Medicine - [address] [phone] Natalio Greenberg PA Need for hepatitis B vaccination from Last 3 Months Immunizations Immunization Administration Dates Next Due Hepatitis B (Hqxscud-Y-Jhzpw , Recombivax HB-Adult) 19yo and older 01/20/2025,12/13/2024 [...] care for your loved ones. For example, children's librarian or elderly care for an older adult? 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 (LDL+VLDL) 104 <145 mg/dL LAB CHEMISTRY METHOD 11/07/2024 2:57 PM EDT [facility] Chol/HDL Ratio 3.1 0.0 - 4.4 LAB CHEMISTRY METHOD 11/07/2024 2:57 PM EDT [facility] Blood Venous blood specimen / Unknown Venipuncture / Unknown 11/07/2024 11:01 AM EDT 11/07/2024 11:01 AM EDT us Apirl Ravi NP LAB BLOOD ORDERABLES Final Resul t [facility] [address] [place] [address], [place] [phone] from Last 3 Months or Most Recently Relevant to Health Maintenance Insurance [facility] [employer] Care Teams Bump Grader Operator Relationship Specialty Start Date End Date Mecca Perez DO [address] [place] [address] PCP - General Internal Medicine 09/03/24
== END 2025-04-04 08:31 | disposition home or self-care (01) ==
LOC: HO.US 08:30
PROVIDERS: PCP Nurse Practitioner; Visit Provider Surgery
DX: E66.01 Morbid (severe) obesity due to excess calories (principal)
CPT/HCPCS: 76700; 76981

== ENCOUNTER → 2025-04-04 08:32 | Outpatient (BNV) | payer OTHER, SELFPAY | PROVIDERS: PCP Nurse Practitioner; Visit Provider Radiology Diagnostic Radiology | DX: E66.01 Morbid (severe) obesity due to excess calories (principal); K76.0 Fatty (change of) liver, not elsewhere classified | CPT/HCPCS: 76700 ==

== ENCOUNTER 2025-04-07 08:58 | Outpatient (REF) | payer OTHER, SELFPAY ==
--- NOTE | ~2025-04-07 | FL_ITS ---
EXAMINATION: XR FLUOROSCOPY UPPER GI WITH AIR CLINICAL INFORMATION: Moderate to severe obesity due to excess calories COMPARISON: None available. TECHNIQUE: Routine upper GI air contrast study was performed in upright and lying position. FINDINGS: Following oral administration of thick barium and effervescent granules and upright view there is normal propagation of bolus from the oral cavity through the pharynx, esophagus into stomach without obstruction, narrowing or stricture. No intraluminal filling defect or extrinsic compression seen. On patient supine and prone lying the course the caliber and peristalsis of the stomach, duodenal bulb and the sweep is normal. The mucosal pattern of the esophagus, stomach and the duodenum is normal. FLUOROSCOPY TIME: 1 minute 42 seconds DOSE AREA PRODUCT: [id number] uGy-m2 (microgray-meter squared) FL/FL upper GI w air IMPRESSION: Unremarkable upper GI air contrast study. Electronically signed by: Davidson Higgins MD 04/07/2025 11:06 AM [facility]
--- OUTSIDE RECORDS SUMMARY | 2025-04-07 09:12 | XMS_ITS | Clinical Summary ---
Author Organization [facility] Address [address] [place] [address] Care Team Providers Care Multi Craft Maintenance Technician Name Role Phone Christelle Patel Primary Care Provider [phone] Allergies No known active allergies Medications No known medications Active Problems No known active problems Encounters Date Type Department Care Team Description 02/10/2025 1:30 PM EST Follow-Up [facility] Sports [address] [address] Keron Shepard MD Concussion without loss of consciousness, subsequent encounter (Primary Dx) 01/16/2025 3:30 PM EDT Follow-Up [address] [address] eKron Shepard MD Concussion without loss of consciousness, subsequent encounter (Primary Dx) from Last 3 Months [...] 2004 Hepatitis C Screening 2004 1 Week [facility] 2004 1 Month [facility] 2004 2 Month [facility] 2004 4 Month [facility] 2004 6 Month [facility] 2004 9 Month [facility] 2004 MMR Vaccines (1 of 1 - Standard series) 2005 12 Month [facility] 04/11/2005 15 Month [facility] 06/28/2005 18 Month [facility] 09/26/2005 24 Month [facility] 03/25/2006 30 Month [facility] 07/29/2006 3 to 20 Year [facility] 2007 Well Child Check 2007 DTaP,Tdap,and [...] patient's age to complete this topic Insurance [facility] MEDICAID Care Teams Multi Craft Maintenance Technician Relationship Specialty Start Date End Date Christelle Patel [address] [place] [id number] PCP - General Pediatrics 07/27/23
--- OUTSIDE RECORDS SUMMARY | 2025-04-07 09:12 | XMS_ITS | Clinical Summary ---
Author Organization [address] [facility] Address [address] [place] [address] Phone Care Team Providers Care Log Hooker Name Role Phone Mecca Perez DO Primary Care Provider [phone] Allergies No known active allergies Medications No known medications Encounters Date Type Department Care Team Description 01/20/2025 3:15 PM EDT Office Visit Internal Medicine - [address] [phone] Natalio Greenberg PA Need for hepatitis B vaccination from Last 3 Months Immunizations Immunization Administration Dates Next Due Hepatitis B (Arrbhfy-B-Makji , Recombivax HB-Adult) 19yo and older 01/20/2025,12/13/2024 [...] for your loved ones. For example, child and family therapist or elderly care for an older adult? 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 (LDL+VLDL) 104 <145 mg/dL LAB CHEMISTRY METHOD 11/07/2024 2:57 PM EDT [facility] Chol/HDL Ratio 3.1 0.0 - 4.4 LAB CHEMISTRY METHOD 11/07/2024 2:57 PM EDT [facility] Blood Venous blood specimen / Unknown Venipuncture / Unknown 11/07/2024 11:01 AM EDT 11/07/2024 11:01 AM EDT us April Ravi NP LAB BLOOD ORDERABLES Final Resul t [facility] [address] [place] [address], [place] [phone] from Last 3 Months or Most Recently Relevant to Health Maintenance Insurance [facility] [employer] Care Teams Log Hooker Relationship Specialty Start Date End Date Mecca Perez DO [address] [place] [address] PCP - General Internal Medicine 09/03/24
== END 2025-04-07 08:59 | disposition home or self-care (01) ==
LOC: HO.XRAY 08:58
PROVIDERS: PCP Nurse Practitioner; Visit Provider Surgery
DX: E66.01 Morbid (severe) obesity due to excess calories (principal)
CPT/HCPCS: 74246

== ENCOUNTER → 2025-04-07 08:59 | Outpatient (BNV) | payer OTHER, SELFPAY | PROVIDERS: PCP Nurse Practitioner; Visit Provider Radiology Diagnostic Radiology | DX: E66.01 Morbid (severe) obesity due to excess calories (principal); Z68.41 Body mass index [BMI] 40.0-44.9, adult | CPT/HCPCS: 74246 ==